=== PATIENT | female | born 1935 | race Caucasian/White ===

== ENCOUNTER 2016-04-14 17:10 | Emergency (ER) | payer MEDICARE, BC ==
[2016-04-14] MEDS ORDERED: INSULIN REG, HUMAN 100 UNIT/ML 3 ML VIAL (PYX) IV ONE ×2 (17:52→21:21)
--- NOTE | 2016-04-14 17:53 | ER Document Report ---
ED General - General Chief Complaint: Cough Stated Complaint: SHORTNESS OF BREATH Time seen by provider: 17:53 Mode of Arrival: Medic Information source: Relative Notes: This is an 80-year-old female with a history of atrial fibrillation (chronic anticoagulation with Eliquis), left lower extremity deep vein thrombosis with lymphedema, insulin requiring diabetes, asthma, and hypertension. The patient had a history of a recent hospitalization in [place] ([facility]) for urosepsis. The patient was discharged and apparently did well for a few days, started having generalized weakness and a few falls at home. Patient is brought in by ambulance today because of decreased mental status, decreased by mouth intake, shortness of breath. Past medical history: Diabetes Atrial fibrillation Deep vein thrombosis to the left lower extremity with chronic lymphedema Recent hospitalization for urosepsis ([facility]) Kidney stones ([facility] Asthma Hypertension Remote ovarian mass TRAVEL OUTSIDE OF THE [place] IN LAST 30 DAYS: No - HPI Onset: Last week Onset/Duration: Gradual Quality of pain: Dull Severity: Moderate Pain Level: 2 Associated symptoms: denies: Chills, Fever Exacerbated by: Denies Relieved by: Denies Similar symptoms previously: Yes Recently seen / treated by doctor: Yes - Related Data Allergies/Adverse Reactions: aspirin [Aspirin] Allergy (Verified 04/14/16 17:26) indomethacin [From Indocin] Allergy (Verified 04/14/16 17:26) indomethacin sodium [From Indocin] Allergy (Verified 04/14/16 17:26) Penicillins Allergy (Verified 04/14/16 17:26) emprin Allergy (Uncoded 04/14/16 17:26) Past Medical History - General Information source: Relative - Social History Smoking Status: Never Smoker Cigarette use (# per day): No Chew tobacco use (# tins/day): No Frequency of alcohol use: None Drug Abuse: None Lives with: Family Family History: Reviewed & Not Pertinent Patient has suicidal ideation: No Patient has homicidal ideation: No - Past Medical History Cardiac Medical History: Reports: Hx Atrial Fibrillation, Hx Hypercholesterolemia, Hx Hypertension - MEDICATED Denies: Hx Congestive Heart Failure, Hx Coronary Artery Disease, Hx Heart Attack, Hx Peripheral Vascular Disease, Hx Pulmonary Embolism, Hx Heart Murmur Pulmonary Medical History: Reports: Hx Asthma - MEDICATED/LAST HOSP AT LEAST 10YRS AGO, Hx Bronchitis, Hx COPD, Hx Pneumonia Denies: Hx Respiratory Failure, Hx Sleep Apnea, Hx Tuberculosis Neurological Medical History: Denies: Hx Cerebrovascular Accident, Hx Seizures Endocrine Medical History: Reports: Hx Diabetes Mellitus Type 1. Denies: Hx Graves' Disease, Hx Hyperthyroidism, Hx Hypothyroidism Renal/ Medical History: Reports: Hx Kidney Stones, Hx Ovarian Cysts. Denies: Hx End Stage Renal Disease, Hx Peritoneal Dialysis, Hx Pelvic Inflammatory Disease Malignancy Medical History: Denies: Hx Breast Cancer, Hx Cervical Cancer, Hx Leukemia, Hx Lung Cancer, Hx Ovarian Cancer GI Medical History: Reports: Hx Gastroesophageal Reflux Disease. Denies: Hx Crohn's Disease, Hx Hepatitis, Hx Hiatal Hernia, Hx Irritable Bowel, Hx Liver Failure, Hx Ulcer Musculoskeltal Medical History: Reports Hx Arthritis, Denies Hx Fibromyalgia, Denies Hx Multiple Sclerosis, Denies Hx Muscular Dystrophy Psychiatric Medical History: Denies: Hx Dementia Traumatic Medical History: Denies: Hx Fractures Infectious Medical History: Denies: Hx Hepatitis, Hx HIV Past Surgical History: Reports: Hx Appendectomy, Hx Orthopedic Surgery, Hx Tonsillectomy. Denies: Hx Bowel Surgery, Hx Section, Hx Cholecystectomy, Hx Colostomy, Hx Coronary Artery Bypass Graft, Hx Gastric Bypass Surgery, Hx Herniorrhaphy, Hx Hysterectomy, Hx Mastectomy, Hx Open Heart Surgery, Hx Pacemaker, Hx Tubal Ligation - Immunizations Hx Diphtheria, Pertussis, Tetanus Vaccination: Yes Review of Systems - Review of Systems Notes: Review of systems: Constitutional: Denies fever, chills. EENT: Denies ear pain, sinus tenderness, throat pain, throat swelling. Cardiovascular: Denies chest pain. Positive for increased swelling of the hands , legs and dyspnea Respiratory: Positive for cough and shortness of breath Abdomen: Denies abdominal pain, nausea, vomiting, diarrhea. Denies BRBPR or melena. Genitourinary: Denies dysuria, pyuria, hematuria, flank pain. Musculoskeletal: Chronic left lower leg swelling, multiple joint pains. Neurologic: Generalized weakness with multiple falls Skin: Laceration to the left forearm in the past week (seen at the wound clinic) Physical Exam - Vital signs Vitals: Temp 98.2 F 04/14/16 17:10 Notes: Physical exam: GENERAL: 80-year-old female, appears lethargic, weak, short of breath. HEAD: Atraumatic, normocephalic. EYES: Pupils equal round and reactive to light, extraocular movements intact, sclera anicteric, conjunctiva are normal. ENT: Oropharynx clear without exudates. Moist mucous membranes. NECK: Normal range of motion, supple without lymphadenopathy. LUNGS: Tachypnea, breath sounds bilaterally HEART: Regular rate and rhythm without murmurs, rubs or gallops. ABDOMEN: Soft, normoactive bowel sounds. No tenderness to palpation. No guarding, no rebound. No masses appreciated. EXTREMITIES: On the upper extremities, she scattered abrasions to both forearms from frequent falls. She had a laceration to the left forearm dorsally. On the lower extremities: 3+ edema on the right lower extremity (this is new as per the patient's daughter), 4+ edema left lower extremity (she has chronic lymphedema of the left lower extremity and the family states that the left lower extremity appears at her baseline).. NEUROLOGICAL: The patient is alert and does answer questions, she is Lethargic, she does move all extremities. PSYCH: Normal mood, normal affect. SKIN: The patient does have superficial sacral breakdown which appears recent Rectal: Brown stool, heme-negative. Course - Re-evaluation Re-evalutation: This is a patient who is on chronic anticoagulation(Eliquis) for atrial fibrillation and a chronic left lower extremity DVT The patient's daughter reports a recent hospitalization for urosepsis ([facility]). She did well for a week but has been getting gradually weak and falling. Today she presented with shortness of breath and increased weakness. Clinically, the patient looks fluid overloaded. She has crackles at the bases, lower extremity edema (right side is new, left side is chronic). Because of very poor access, a left-sided internal jugular vein line was placed. The right IJ vein was avoided because it was not compressible by ultrasound. The position of the left IJ line was confirmed by CT of the chest (the patient does have venous anatomy which made confirmation difficult with chest x-ray). The blood from the IJ line appeared venous and was nonpulsatile and all 3 ports are patent. Additionally, the CT of the chest did show significant right pleural effusion and a small left pleural effusion. A CT of the abdomen revealed a 10 mm distal ureter stone on the left with left hydronephrosis. The patient does have a history of an ovarian mass and had a cystic mass which appeared similar from a CT in 2016. She does have some anasarca. Labs revealed a significant leukocytosis (27,000) with a percent bands, marked anemia with a hemoglobin of 6 and a hematocrit of 20, BUN/creatinine which are elevated (53/2.3), elevated BNP, elevated troponin. The patient's urinalysis shows pyuria, hematuria and bacteriuria. CT of the abdomen shows a 10 mm distal left ureter stone with left hydronephrosis, along with anasarca. To summarize the patient's medical issues are as follows: 1. Sepsis with UTI secondary to obstructive uropathy (10 mm left distal ureter stone with hydronephrosis). The patient's lactic acid is 1.5 (normal). Her white count is 27,000 with 8% bands. The patient was given IV levofloxacin ( 750 mg). Blood and urine cultures have been sent. I did contact Natalie given her most recent hospitalization. They reported that the urine culture 2 weeks ago was "negative". Because of the fluid overload, I have not given her 30 mL/ kg bolus of normal saline. The plan is to transfer the patient to a facility with urology backup given the obstructive uropathy. We do not have a urologist here at [place]. 2. Anemia (hemoglobin 6,Hct 20). As reported from my conversation with Natalie pollard: The patient's Hct approximately 2 weeks ago was 23. At this point, given the patient's shortness of breath, I'm going to transfuse her (2 units). I do believe she is clinically fluid overloaded, so I will be giving her IV Lasix before and during the transfusions. 3. Acute renal failure. The patient's BUN/creatinine are 53/2.3. As reported by Natalie, the patient's creatinine was 1.3-1.8 during the most recent hospitalization. The renal failure may be a combination of sepsis, obstructive uropathy. The plan will be to follow the BUN/creatinine as both of these are addressed. 4. Hyperglycemia: The patient's initial glucose was 557. She was given IV insulin. Subsequent Accu-Cheks have been in the 400s, we are starting IV insulin drip at 0.05/mg/kg. 5. Fluid overload: The CT of the chest and abdomen shows significant right pleural effusion, ascites with anasarca. The BNP is markedly elevated. We will continue to treat the patient supportively as mentioned above and treated with IV Lasix. The patient's troponin initially was elevated and repeat set been around the same. I believe this is from demand ischemia from sepsis. The EKG shows a atrial fibrillation without any acute ST-T wave changes. There is no recent history of a sudden onset of chest pain or shortness of breath, or symptoms of been gradual. 6. Current vital signs: The blood pressure has been maintaining at approximately 115 systolic. The patient's oxygen saturation has been 92% on 2 L nasal cannula. I did contact [facility] (Dr Longoria), [facility] (Dr Garcia), [facility] which do not have any available beds at this time. I've spoken with Dnaya Fuchs (Dr Santana) who is willing to accept the patient. 04/15/16 02:02 - Vital Signs Vital signs: Temp Pulse Resp BP Pulse Ox 97.7 F 91 27 H 95/60 L 100 04/15/16 01:45 04/15/16 01:45 04/15/16 01:47 04/15/16 01:47 04/15/16 01:47 - Laboratory Result Diagrams: 04/14/16 20:17 04/14/16 20:17 Laboratory results interpreted by me: 04/14/16 04/14/16 04/14/16 20:17 20:17 20:17 WBC 27.0 H RBC 2.72 L Hgb 6.1 L Hct 20.5 L MCV 75 L MCH 22.4 L MCHC 29.7 L RDW 18.4 H Seg Neuts % (Manual) 89 H Band Neutrophils % 8 H Lymphocytes % (Manual) 1 L Monocytes % (Manual) 2 L Abs Neuts (Manual) 26.2 H Abs Lymphs (Manual) 0.3 L PT Sodium 129.2 L Potassium 5.8 H Chloride 97 L Carbon Dioxide 20 L BUN 53 H Creatinine 2.29 H Est GFR ( Amer) 25 L Est GFR (Non-Af Amer) 20 L Glucose 557 H* AST 12 L Creatine Kinase 26 L NT-Pro-B Natriuret Pep 49885 H Total Protein 5.5 L Albumin 2.7 L Urine Protein Urine Glucose (UA) Urine Blood Ur Leukocyte Esterase Crossmatch 04/14/16 04/14/16 04/14/16 20:17 21:49 22:49 WBC RBC Hgb Hct MCV MCH MCHC RDW Seg Neuts % (Manual) Band Neutrophils % Lymphocytes % (Manual) Monocytes % (Manual) Abs Neuts (Manual) Abs Lymphs (Manual) PT 18.1 H Sodium Potassium Chloride Carbon Dioxide BUN Creatinine Est GFR ( Amer) Est GFR (Non-Af Amer) Glucose AST Creatine Kinase NT-Pro-B Natriuret Pep Total Protein Albumin Urine Protein 100 H Urine Glucose (UA) >=500 H Urine Blood LARGE H Ur Leukocyte Esterase LARGE H Crossmatch See Detail - Diagnostic Test Radiology reviewed: Image reviewed, Reports reviewed - CT of the chest shows pulmonary effusions, left internal jugular vein line, atelectasis CT of the abdomen shows a 10 mm distal left ureter stone with hydronephrosis - EKG Interpretation by Me Rate: Tachycardia - A. fib with a ventricular rate of 105, left anterior hemiblock, poor R-wave progression, no acute ST-T wave changes Rhythm: A.Fib Procedures - Central Line Left Internal jugular Time completed: 19:00 Consent obtained: Yes - verbal consent from family Central line pre-insertion: Chloraprep applied, Sterile drapes applied Central line size (Fr.): 18 - triple Central line lumen type: Triple Anesthetic type: 1% Lidocaine mL's of anesthesia: 5 Ultrasound guided: Yes CM at insertion site: 19 Line secured with sutures: Yes Central line post-insertion: Blood return from lumens, Biopatch applied, Sutured , Other - Confirmed by CT Number of attempts: 1 Complications: No Notes: 04/15/16 02:24 MSBT (maximum sterile barrier technique) followed including cap, mask, sterile gloves, large sterile sheet, hand hygiene, sterile ultrasound probe sleeve, sterile saline for probe visualization, liberal ChloraPrep for cutaneous antisepsis both during procedure set up and immediately before Biopatch application, line stabilization with suture and sterile Tegaderm placement. Critical Care Note - Critical Care Note Total time excluding time spent on procedures (mins): 120 Discharge - Discharge Clinical Impression: sepsis with UTI, acute renal failure, marked anemia, hyperglycemia, hyperkalemia Condition: Critical Disposition: TERTIARY Referrals: FERNANDO GOSS MD [Primary Care Provider] - Follow up as needed
--- NOTE | 2016-04-14 17:56 | ER Document Report ---
ED General - General Chief Complaint: Cough Stated Complaint: SHORTNESS OF BREATH Time seen by provider: 17:55 Mode of Arrival: Medic Information source: Relative Notes: This is an 80-year-old female with a history of atrial fibrillation (chronic anticoagulation with Eliquis), left lower extremity deep vein thrombosis with lymphedema, insulin requiring diabetes, asthma, and hypertension. The patient had a history of a recent hospitalization in [place] ([facility]) for urosepsis in the setting of kidney stone. The patient was discharged and apparently did well for a few days, started having generalized weakness and a few falls at home. Patient is brought in by ambulance today because of decreased mental status, decreased by mouth intake, shortness of breath. TRAVEL OUTSIDE OF THE [place] IN LAST 30 DAYS: No - HPI Onset: Last week Onset/Duration: Gradual Quality of pain: Dull Severity: Moderate Pain Level: 2 Associated symptoms: Nonproductive cough, Shortness of breath, Weakness. denies : Fever Exacerbated by: Denies Relieved by: Denies Similar symptoms previously: Yes Recently seen / treated by doctor: Yes - Related Data Allergies/Adverse Reactions: aspirin [Aspirin] Allergy (Verified 04/14/16 17:26) indomethacin [From Indocin] Allergy (Verified 04/14/16 17:26) indomethacin sodium [From Indocin] Allergy (Verified 04/14/16 17:26) Penicillins Allergy (Verified 04/14/16 17:26) emprin Allergy (Uncoded 04/14/16 17:26) Past Medical History - General Information source: Relative - Social History Smoking Status: Never Smoker Cigarette use (# per day): No Chew tobacco use (# tins/day): No Frequency of alcohol use: None Drug Abuse: None Lives with: Family Family History: Reviewed & Not Pertinent Patient has suicidal ideation: No Patient has homicidal ideation: No - Past Medical History Cardiac Medical History: Reports: Hx Atrial Fibrillation, Hx Hypercholesterolemia, Hx Hypertension - MEDICATED Denies: Hx Congestive Heart Failure, Hx Coronary Artery Disease, Hx Heart Attack, Hx Peripheral Vascular Disease, Hx Pulmonary Embolism, Hx Heart Murmur Pulmonary Medical History: Reports: Hx Asthma - MEDICATED/LAST HOSP AT LEAST 10YRS AGO, Hx Bronchitis, Hx COPD, Hx Pneumonia Denies: Hx Respiratory Failure, Hx Sleep Apnea, Hx Tuberculosis Neurological Medical History: Denies: Hx Cerebrovascular Accident, Hx Seizures Endocrine Medical History: Reports: Hx Diabetes Mellitus Type 1. Denies: Hx Graves' Disease, Hx Hyperthyroidism, Hx Hypothyroidism Renal/ Medical History: Reports: Hx Kidney Stones, Hx Ovarian Cysts. Denies: Hx End Stage Renal Disease, Hx Peritoneal Dialysis, Hx Pelvic Inflammatory Disease Malignancy Medical History: Denies: Hx Breast Cancer, Hx Cervical Cancer, Hx Leukemia, Hx Lung Cancer, Hx Ovarian Cancer GI Medical History: Reports: Hx Gastroesophageal Reflux Disease. Denies: Hx Crohn's Disease, Hx Hepatitis, Hx Hiatal Hernia, Hx Irritable Bowel, Hx Liver Failure, Hx Ulcer Musculoskeltal Medical History: Reports Hx Arthritis, Denies Hx Fibromyalgia, Denies Hx Multiple Sclerosis, Denies Hx Muscular Dystrophy Psychiatric Medical History: Denies: Hx Dementia Traumatic Medical History: Denies: Hx Fractures Infectious Medical History: Denies: Hx Hepatitis, Hx HIV Past Surgical History: Reports: Hx Appendectomy, Hx Orthopedic Surgery, Hx Tonsillectomy. Denies: Hx Bowel Surgery, Hx Section, Hx Cholecystectomy, Hx Colostomy, Hx Coronary Artery Bypass Graft, Hx Gastric Bypass Surgery, Hx Herniorrhaphy, Hx Hysterectomy, Hx Mastectomy, Hx Open Heart Surgery, Hx Pacemaker, Hx Tubal Ligation - Immunizations Hx Diphtheria, Pertussis, Tetanus Vaccination: Yes Review of Systems - Review of Systems Constitutional: denies: Chills, Fever EENT: No symptoms reported Cardiovascular: No symptoms reported Respiratory: See HPI Gastrointestinal: No symptoms reported Genitourinary: No symptoms reported Female Genitourinary: No symptoms reported Musculoskeletal: No symptoms reported Skin: No symptoms reported Hematologic/Lymphatic: No symptoms reported Neurological/Psychological: See HPI Physical Exam - Vital signs Vitals: Temp 98.2 F 04/14/16 17:10 Notes: Physical exam: GENERAL: 80-year-old female, appears lethargic, weak, short of breath HEAD: Atraumatic, normocephalic. EYES: Pupils equal round and reactive to light, extraocular movements intact, sclera anicteric, conjunctiva are normal. ENT: TMs normal, nares patent, oropharynx clear without exudates. Moist mucous membranes. NECK: Normal range of motion, supple without lymphadenopathy or JVD. LUNGS: Tachypnea, breath sounds bilaterally HEART: Regular rate and rhythm without murmurs, rubs or gallops. ABDOMEN: Soft, normoactive bowel sounds. No tenderness to palpation. No guarding, no rebound. No masses appreciated. EXTREMITIES: 3+ edema on the right lower extremity, 4+ edema left lower extremity. NEUROLOGICAL: Cranial nerves II through XII grossly intact. Lethargic, moving extremities she does open her eyes and talk briefly PSYCH: Normal mood, normal affect. SKIN: Warm, Dry, normal turgor, no rashes or lesions noted. Course - Re-evaluation Re-evalutation: 04/15/16 00:32 Note: This is a patient who is on chronic anticoagulation for atrial fibrillation and a chronic left lower extremity DVT, with a recent hospitalization for urosepsis with kidney stone ([facility]). She did well for a week but has been getting gradually weak and falling. Today she presented with shortness of breath. Clinically, the patient looks fluid overloaded. A left internal jugular triple-lumen catheter was placed with ultrasound guidance because of very poor IV access. All [address] of the chest shows that the line is in the internal jugular vein. Labs show a significant leukocytosis (27,000) with a percent bands, marked anemia with a hemoglobin of 6 and a hematocrit of 20, BUN/creatinine which are elevated (53/2.3), elevated BNP, elevated troponin. The patient's urinalysis shows pyuria, hematuria and bacteriuria. CT of the abdomen shows a 10 mm distal left ureter stone with left hydronephrosis, along with anasarca. The patient was given IV levofloxacin (750 mg). We are awaiting blood transfusion, she will be given Lasix with the blood transfusion. Her glucose has been elevated and we've been giving her IV insulin. Currently she is maintaining her airway with oxygen saturations at 92% on 2 L. Her blood pressure is been approximately 115 systolic. She is alert and answering questions. 04/15/16 00:53 - Vital Signs Vital signs: Temp Pulse Resp BP Pulse Ox 98.2 F 75 20 74/61 L 99 04/14/16 17:31 04/14/16 17:31 04/15/16 00:30 04/15/16 00:30 04/15/16 00:30 - Laboratory Result Diagrams: 04/14/16 20:17 04/14/16 20:17 Laboratory results interpreted by me: 03/01/17 03/01/17 03/01/17 20:17 20:17 20:17 WBC 27.0 H RBC 2.72 L Hgb 6.1 L Hct 20.5 L MCV 75 L MCH 22.4 L MCHC 29.7 L RDW 18.4 H Seg Neuts % (Manual) 89 H Band Neutrophils % 8 H Lymphocytes % (Manual) 1 L Monocytes % (Manual) 2 L Abs Neuts (Manual) 26.2 H Abs Lymphs (Manual) 0.3 L PT Sodium 129.2 L Potassium 5.8 H Chloride 97 L Carbon Dioxide 20 L BUN 53 H Creatinine 2.29 H Est GFR ( Amer) 25 L Est GFR (Non-Af Amer) 20 L Glucose 557 H* AST 12 L Creatine Kinase 26 L NT-Pro-B Natriuret Pep 13624 H Total Protein 5.5 L Albumin 2.7 L Urine Protein Urine Glucose (UA) Urine Blood Ur Leukocyte Esterase Crossmatch 04/14/16 04/14/16 04/14/16 20:17 21:49 22:49 WBC RBC Hgb Hct MCV MCH MCHC RDW Seg Neuts % (Manual) Band Neutrophils % Lymphocytes % (Manual) Monocytes % (Manual) Abs Neuts (Manual) Abs Lymphs (Manual) PT 18.1 H Sodium Potassium Chloride Carbon Dioxide BUN Creatinine Est GFR ( Amer) Est GFR (Non-Af Amer) Glucose AST Creatine Kinase NT-Pro-B Natriuret Pep Total Protein Albumin Urine Protein 100 H Urine Glucose (UA) >=500 H Urine Blood LARGE H Ur Leukocyte Esterase LARGE H Crossmatch See Detail - Diagnostic Test Radiology reviewed: Image reviewed, Reports reviewed - CT of the head shows chronic changes and atrophy. CT of the chest shows the left internal jugular vein catheter. There is a large right pleural effusion, small left pleural effusion. There is bi-basilar subsegmental atelectasis and airspace disease. CT of the abdomen shows a 10 mm calcified stone in the distal left ureter with moderate hydronephrosis and hydroureter. Patient does have moderate ascites and anasarca. - EKG Interpretation by [facility]: A.Fib - EKG shows atrial fibrillation with a ventricular rate of 105, a left anterior hemiblock, poor R-wave progression, ventricular rate, no acute ST- T wave changes. Procedures - Central Line Left Internal jugular Time completed: 19:00 Consent obtained: Yes - verbal consent from family Central line pre-insertion: Chloraprep applied, Sterile drapes applied Central line size (Fr.): 18 - triple Central line lumen type: Triple Anesthetic type: 1% Lidocaine mL's of anesthesia: 5 Ultrasound guided: Yes CM at insertion site: 19 Line secured with sutures: Yes Central line post-insertion: Blood return from lumens, Biopatch applied, Sterile dressing applied, Other - Position confirmed by CT of the chest Number of attempts: 1 Complications: No Notes: 04/15/16 00:58 MSBT (maximum sterile barrier technique) followed including cap, mask, sterile gloves, large sterile sheet, hand hygiene, sterile ultrasound probe sleeve, sterile saline for probe visualization, liberal ChloraPrep for cutaneous antisepsis both during procedure set up and immediately before Biopatch application, line stabilization with suture and sterile Tegaderm placement. Critical Care Note - Critical Care Note Total time excluding time spent on procedures (mins): 120 Discharge - Discharge Clinical Impression: sepsis with UTI, acute renal failure, marked anemia, hyperglycemia, hyperkalemia Condition: Critical Disposition: TERTIARY Referrals: FERNANDO GOSS MD [Primary Care Provider] - Follow up as needed
[2016-04-14] MEDS ORDERED: IPRATROPIUM/ALBUTEROL 0.5-2.5 MG/3 ML AMPUL NEB ONE ×2 (18:56→21:07)
[2016-04-14] MEDS ORDERED: OXYCODONE-ACETAMINOPHEN 5-325 MG TABLET PO ONE (19:02)
[2016-04-14] MEDS ORDERED: MORPHINE SULFATE 10 MG/ML INJ IV ONE (19:35)
--- NOTE | 2016-04-14 20:15 | EKG REPORT ---
SEVERITY:- ABNORMAL ECG - ATRIAL FIBRILLATION LAD, CONSIDER LEFT ANTERIOR FASCICULAR BLOCK LOW VOLTAGE THROUGHOUT BORDERLINE R WAVE PROGRESSION, ANTERIOR LEADS : Confirmed by: Jose Bullard MD 14-Apr-2016 20:14:06
[2016-04-14] MEDS ORDERED: FUROSEMIDE INJ/PF 40 MG/4 ML SDV IV ONE (20:41)
[2016-04-14 20:43] LABS: HEMATOCRIT 20.5 % (36.0-47.0); HGB HCT DIFFERENCE -2.2; MEAN CORPUSCULAR HEMOGLOBIN 22.4 pg (27.0-33.4); MEAN CORPUSCULAR HGB CONC 29.7 g/dL (32.0-36.0); MEAN CORPUSCULAR VOLUME 75 fl (80-97); RED BLOOD COUNT 2.72 10^6/uL (3.72-5.28); RED CELL DISTRIBUTION WIDTH 18.4 % (11.5-14.0)
[2016-04-14] MEDS ORDERED: LEVOFLOXACIN 750 MG/D5W RTU 150 ML IV ONE (20:49)
[2016-04-14 21:00] LABS: ALANINE AMINOTRANSFERASE 17 U/L (9-52); ALBUMIN 2.7 g/dL (3.5-5.0); ALKALINE PHOSPHATASE 121 U/L (38-126); ANION GAP 12 (5-19); ASPARTATE AMINO TRANSFERASE 12 U/L (14-36); BILIRUBIN,TOTAL 0.8 mg/dL (0.2-1.3); BLOOD UREA NITROGEN 53 mg/dL (7-20); CALCIUM 8.4 mg/dL (8.4-10.2); CARBON DIOXIDE 20 mmol/L (22-30); CHLORIDE 97 mmol/L (98-107); CREATINE KINASE 26 U/L (30-135); CREATININE RESULT 2.29 mg/dL (0.52-1.25); POTASSIUM 5.8 mmol/L (3.6-5.0); SODIUM 129.2 mmol/L (137-145); TOTAL PROTEIN 5.5 g/dL (6.3-8.2)
[2016-04-14 21:07] LABS: BAND NEUTROPHILS % (MANUAL) 8 % (3-5); BASOPHILS % (MANUAL) 0 % (0-2); EOSINOPHILS % (MANUAL) 0 % (0-6); LYMPHOCYTES % (MANUAL) 1 % (13-45); TOTAL CELLS COUNTED 100
[2016-04-14 21:09] LABS: HYPOCHROMASIA 1+; POLYCHROMASIA SLIGHT; SMUDGE CELLS PRESENT
[2016-04-14 21:10] LABS: ACANTHOCYTES 1+; ANISOCYTOSIS 2+; MICROCYTOSIS 1+; OVALOCYTES SLIGHT; PLATELET CLUMPS PRESENT; POIKILOCYTOSIS 1+; TEAR DROP CELLS SLIGHT
[2016-04-14 21:12] LABS: HEMOGLOBIN 6.1 g/dL (12.0-15.5)
[2016-04-14 21:15] LABS: GLUCOSE 557 mg/dL (75-110)
[2016-04-14 21:22] LABS: CREATINE KINASE MB 0.59 ng/mL (<4.55)
[2016-04-14] MEDS ORDERED: NORMAL SALINE 250 ML IV PRN ×2 (21:40)
[2016-04-14] MEDS ORDERED: FUROSEMIDE INJ/PF 40 MG/4 ML SDV IV PRN (21:40)
[2016-04-14 21:44] LABS: TROPONIN I 0.338 ng/mL
[2016-04-14 22:02] LABS: PROTHROMBIN TIME 18.1 SEC (11.4-15.4)
[2016-04-14 23:16] LABS: APPEARANCE,URINE TURBID; BILIRUBIN,URINE NEGATIVE (NEGATIVE); GLUCOSE, URINE >=500 mg/dL (NEGATIVE); KETONES,URINE NEGATIVE (NEGATIVE); LEUKOCYTE ESTERASE,URINE LARGE (NEGATIVE); NITRITE,URINE NEGATIVE (NEGATIVE); PROTEIN,URINE 100 mg/dL (NEGATIVE); URINE SPECIFIC GRAVITY 1.013; UROBILINOGEN,URINE NEGATIVE mg/dL (<2.0)
[2016-04-15] MEDS ORDERED: INSULIN REG, HUMAN 100 UNIT/ML 3 ML VIAL (PYX) IV ONE (00:13)
[2016-04-15] MEDS ORDERED: FUROSEMIDE INJ/PF 40 MG/4 ML SDV IV ONE (01:52)
[2016-04-15] MEDS ORDERED: NORMAL SALINE 100 ML with INSULIN REGULAR, HUMAN 100 UNIT SUBCUT PRN ×2 (01:54)
[2016-04-15] MEDS ORDERED: INSULIN REG, HUMAN 100 UNIT/ML 3 ML VIAL (PYX) ONE (02:18)
[2016-04-15] MEDS ORDERED: ACETAMINOPHEN 650 MG SUPP.RECT PR ONE (02:25)
[2016-04-15 10:08] VITALS: BP 115/65
== END 2016-04-15 10:35 | disposition short-term general hospital (02) ==
LOC: ER 17:10
PROC: 05HN33Z Insertion of Infusion Device into Left Internal Jugular Vein, Percutaneous Approach (ICD-10-PCS; principal; 2016-04-14)
DX: A41.9 Sepsis, unspecified organism (principal); N39.0 Urinary tract infection, site not specified; N17.9 Acute kidney failure, unspecified; N13.6 Pyonephrosis; D64.9 Anemia, unspecified; E11.65 Type 2 diabetes mellitus with hyperglycemia; E87.5 Hyperkalemia; E87.70 Fluid overload, unspecified; R05 Cough; R06.02 Shortness of breath; I10 Essential (primary) hypertension; I48.91 Unspecified atrial fibrillation; J45.909 Unspecified asthma, uncomplicated; Z79.02 Long term (current) use of antithrombotics/antiplatelets; Z86.718 Personal history of other venous thrombosis and embolism; Z87.442 Personal history of urinary calculi; Z91.81 History of falling; Z79.4 Long term (current) use of insulin
CPT/HCPCS: 36556; 93005; 96376; 94640 ×2; 99291; 99292; 96375; 96365; 86900; 86901; 36415; 87040; 87086; 82553; 36430; 86850; 82962; 82550; 85025; 85610; 82272; 80053; 81001; 84484; 86920; 83605; 83880; 71010; 70450; 71250; 76380; 93010; C1751; P9016; A9270 ×5; J1940 ×2; J2270; J1956; J1815; J7620